=== PATIENT | female | born 1985 | race Caucasian/White ===

== ENCOUNTER 2017-12-06 16:23 | Emergency (ER) | payer SELFPAY ==
[2017-12-06] MEDS: IPRATRPIUM/ALBUTEROL 0.5/2.5MG 3 ML NEBU. NEB ×2 (17:43)
[2017-12-06] MEDS: HYDROcodone/APAP 10/325 1 TAB TABLET PO ×2 (18:05)
[2017-12-06 18:30] LABS: INFLUENZA A PATIENT NEGATIVE (NEGATIVE); INFLUENZA B PATIENT NEGATIVE (NEGATIVE); OBC FLU VALID
== END 2017-12-06 18:57 | disposition home or self-care (01) ==
LOC: ER 16:23
DX: J18.9 Pneumonia, unspecified organism (principal); F17.200 Nicotine dependence, unspecified, uncomplicated; Z88.1 Allergy status to other antibiotic agents; Z88.8 Allergy status to other drugs, medicaments and biological substances
CPT/HCPCS: 71046; 87804; 87804-59; 94640; 99285-25; J7620

== ENCOUNTER 2017-12-12 11:40 | Emergency (ER) | payer SELFPAY ==
[2017-12-12] MEDS: BENZONATATE 100 MG CAPSULE. PO ×2 (12:14)
[2017-12-12 12:29] LABS: INFLUENZA A PATIENT NEGATIVE (NEGATIVE); INFLUENZA B PATIENT NEGATIVE (NEGATIVE); OBC FLU VALID
[2017-12-12] MEDS: IPRATRPIUM/ALBUTEROL 0.5/2.5MG 3 ML NEBU. NEB ×2 (12:31)
== END 2017-12-12 13:32 | disposition home or self-care (01) ==
LOC: ER 13:32
DX: J20.8 Acute bronchitis due to other specified organisms (principal); F17.200 Nicotine dependence, unspecified, uncomplicated; Z88.1 Allergy status to other antibiotic agents; Z88.8 Allergy status to other drugs, medicaments and biological substances
CPT/HCPCS: 71046; 87804; 87804-59; 94640; 99285-25; J7620

== ENCOUNTER 2018-01-22 11:54 | Emergency (ER) | payer SELFPAY ==
[2018-01-22] MEDS: HYDROcodone/APAP 5/325MG 1 TAB TABLET PO (13:24)
[2018-01-22 13:58] LABS: BACTERIA,URINE FEW /HPF (0-FEW); BILIRUBIN,URINE NEGATIVE (NEG); CLARITY,URINE CLEAR; COLOR,URINE STRAW; GLUCOSE,URINE NEGATIVE (NEG); NITRITE,URINE NEGATIVE (NEG); PROTEIN,URINE NEGATIVE (NEG-TRACE); RBC,URINE RARE /HPF (0-2); SQUAMOUS EPITHELIAL CELL,UR FEW /LPF; UROBILINOGEN,URINE 0.2 mg/dL (0.2 mg/dL); WBC,URINE RARE /HPF (0-4)
[2018-01-22] MEDS: ONDANSETRON ODT 4 MG TAB.RAPDIS. PO (14:12)
== END 2018-01-22 14:14 | disposition home or self-care (01) ==
LOC: ER 11:54
DX: M54.42 Lumbago with sciatica, left side (principal); Z88.1 Allergy status to other antibiotic agents; Z88.8 Allergy status to other drugs, medicaments and biological substances
CPT/HCPCS: 81001; 99283; Q0162